=== PATIENT | male | born 1975 | race Caucasian/White ===

== ENCOUNTER 2020-05-04 13:37 | Emergency (ER) | payer OTHER ==
[2020-05-04] MEDS ORDERED: HYDROmorphone 1 MG/ML 1 ML SYRINGE IVP STA ×3 (14:05→17:42)
--- NOTE | 2020-05-04 14:23 | ED ---
General Adult HPI - General Chief complaint: Trauma Stated complaint: Fall tree stand 20 Ft Time Seen by Provider: 05/04/20 13:58 Source: patient, EMS, RN notes reviewed, old records reviewed (Reviewed report from [facility]) Mode of arrival: EMS Limitations: no limitations - History of Present Illness Initial comments: Patient is a pleasant 45-year-old male presenting to the emergency department following a fall. Incident occurred this morning. Patient states he fell approximately 20 feet. Patient states he tried to land on both of his feet however did hit a stump with his left foot. Patient complains of severe left ankle discomfort. Patient was seen and [facility] and placed in a splint. X-rays were done. Patient denies any head injury or loss of consciousness. No neck or back pain. No chest pain or dyspnea. No abdominal pain. No history of similar injury previously. - Related Data Home Medications Medication Instructions Recorded Confirmed No Known Home Medications 05/04/20 05/04/20 Allergies Allergy/AdvReac Type Severity Reaction Status Date / Time No Known Allergies Allergy Verified 05/04/20 15:22 Review of Systems ROS Statement: Those systems with pertinent positive or pertinent negative responses have been documented in the HPI. ROS Other: All systems not noted in ROS Statement are negative. Constitutional: Denies: fever Eyes: Denies: eye pain ENT: Denies: throat pain Respiratory: Denies: cough, dyspnea Cardiovascular: Denies: chest pain Endocrine: Denies: fatigue Gastrointestinal: Denies: abdominal pain Genitourinary: Denies: dysuria Musculoskeletal: Reports: as per HPI Skin: Denies: rash Neurological: Denies: weakness Past Medical History Past Medical History: No Reported History History of Any Multi-Drug Resistant Organisms: None Reported Past Surgical History: Orthopedic Surgery, Tonsillectomy Past Psychological History: No Psychological Hx Reported Smoking Status: Former smoker Past Alcohol Use History: Occasional Past Drug Use History: None Reported General Exam Limitations: no limitations General appearance: alert, in no apparent distress Head exam: Present: normocephalic Eye exam: Present: normal appearance, PERRL ENT exam: Present: normal oropharynx Neck exam: Present: normal inspection. Absent: tenderness Respiratory exam: Present: normal lung sounds bilaterally. Absent: chest wall tenderness Cardiovascular Exam: Present: regular rate, normal rhythm Expanded Peripheral pulses: 2+: Dorsalis Pedis (L) GI/Abdominal exam: Present: soft. Absent: distended, tenderness, guarding, rebound, rigid Extremities exam: Present: tenderness (Tenderness left ankle. Splint is placed. No other areas of bony tenderness. distally the extremity is neurovascular intact. Good cap refill. Sensation intact. Able to move toes.) Back exam: Present: normal inspection. Absent: tenderness, vertebral tenderness Neurological exam: Present: alert. Absent: motor sensory deficit Psychiatric exam: Present: normal affect, normal mood Skin exam: Present: normal color Course Vital Signs 05/04/20 05/04/20 13:41 15:54 Temperature 99.9 F H Pulse Rate 71 68 Respiratory 18 18 Rate Blood Pressure 128/70 105/66 O2 Sat by Pulse 100 100 Oximetry Medical Decision Making - Medical Decision Making Case was discussed twice with orthopedics. They state patient will need to be transferred. Case was also discussed with Dr. Miller at [facility] who will accept transfer. Case also discussed with Dr. Arias who will accept transfer at [facility]. - Radiology Data Radiology results: image reviewed (X-ray left ankle does show a comminuted trimalleolar fracture, similar to outside films) Disposition Clinical Impression: Trimalleolar fracture of left ankle Disposition: OTHER INSTITUTION NOT DEFINED Is patient prescribed a controlled substance at d/c from ED?: No Referrals: Nickolas Marvin MD [Primary Care Provider] - 1-2 days Time of Disposition: 16:13 - Out of Hospital Transfer - Req. Specs Out of Hospital Transfer - Requested Specifics: Other Emergency Center
--- NOTE | 2020-05-04 15:03 | XR ---
EXAMINATION TYPE: XR ankle complete LT DATE OF EXAM: 05/04/2020 COMPARISON: NONE HISTORY: Pain TECHNIQUE: 3 views of the left ankle are submitted for evaluation. FINDINGS: Overlying cast material does obscure fine bony detail comminuted and displaced fractures in volving the medial, lateral and posterior malleoli. Deformity is noted about the ankle as well as sof t tissue swelling. Intra-articular extension is noted however the ankle mortise appears to be grossly intact. IMPRESSION: Comminuted trimalleolar fracture.
[2020-05-04 17:53] VITALS: BP 110/78; PULSE 75; RESP 17; TEMP 99.3
== END 2020-05-04 17:56 | disposition other institution (70) ==
LOC: EC 13:37
DX: S82.852A Displaced trimalleolar fracture of left lower leg, initial encounter for closed fracture (principal); Z87.891 Personal history of nicotine dependence; W14.XXXA Fall from tree, initial encounter; Y92.89 Other specified places as the place of occurrence of the external cause
CPT/HCPCS: 73610; 99285; 96374; 96376 ×2; J1170